=== PATIENT | female | born 1990 | race Caucasian/White ===

== ENCOUNTER 2018-06-08 13:07 | Inpatient (IN) | payer BC, OTHER ==
[~2018-06-08] VITALS: Ht 170.2 cm; Wt 55.8 kg
--- NOTE | 2018-06-08 21:35 | NUR ---
PRE-ADMISSION NOTE Pt was seen in intake office. Pt is intoxicated and is currently not experience any s/s of withdrawal. Pt has difficulty concentrating, mainlining eye contact, and has a disheveled appearance. Pt has a steady gait. V/S: P:93, RR:16, RR:16, SPO2:99, BP:133/92. Pt is acceptable for admittance to the unit. .
[2018-06-08] MEDS ORDERED: LORAZEPAM 2 MG/1 ML VIAL IM PRN (22:00)
[2018-06-08] MEDS ORDERED: MIRALAX 17 GM POWD.PACK PO PRN (22:00)
[2018-06-08] MEDS ORDERED: ONDANSETRON ODT 4 MG TAB.RAPDIS SL PRN (22:00)
[2018-06-08] MEDS ORDERED: diphenhydrAMINE 50 MG CAPSULE PO PRN (22:00)
[2018-06-08] MEDS ORDERED: BUPRENORPHINE HCL 2 MG TAB.SUBL SL PRN (22:00)
[2018-06-08] MEDS ORDERED: MAGNESIUM HYDROXIDE 30 ML LIQUID UDC PO PRN (22:00)
[2018-06-08] MEDS ORDERED: ONDANSETRON 4 MG/2 ML VIAL IM PRN (22:00)
[2018-06-08] MEDS ORDERED: LORAZEPAM 1 MG TABLET PO PRN (22:00)
[2018-06-08] MEDS ORDERED: MAG HYDROX/AL HYDROX/SIMETH 30 ML LIQUID UDC PO PRN (22:00)
[2018-06-08] MEDS ORDERED: ACETAMINOPHEN 325 MG TABLET PO PRN (22:00)
[2018-06-08] MEDS ORDERED: LOPERAMIDE HCL 2 MG CAPSULE PO PRN ×2 (22:00)
[2018-06-08] MEDS ORDERED: HYDROXYZINE PAMOATE 25 MG CAPSULE PO PRN (22:00)
[2018-06-08 22:17] LABS: BASOPHILS % (AUTO) 0.3 % (0.0-2.0); EOSINOPHILS # (AUTO) 0.2 K/uL (0.0-0.7); EOSINOPHILS % (AUTO) 2.6 % (0.0-7.0); HEMATOCRIT 41.9 % (31.2-41.9); HEMOGLOBIN 14.2 g/dL (10.9-14.3); LYMPHOCYTES # (AUTO) 2.8 K/uL (20.0-40.0); LYMPHOCYTES % (AUTO) 43.9 % (20.5-51.5); MEAN CORPUSCULAR HEMOGLOBIN 30.5 uug (24.7-32.8); MEAN CORPUSCULAR HGB CONC 34 g/dL (32.3-35.6); MEAN CORPUSCULAR VOLUME 89.8 fL (75.5-95.3); MONOCYTES # (AUTO) 0.4 K/uL (2.0-10.0); MONOCYTES % (AUTO) 6.8 % (0.0-11.0); NEUTROPHILS % (AUTO) 46.4 % (38.5-71.5); PLATELET COUNT (AUTO) 297 K/uL (179-408); RED BLOOD CELL COUNT(AUTO) 4.67 MIL/uL (3.63-4.92); WHITE BLOOD COUNT (AUTO) 6.4 K/uL (3.8-11.8)
[2018-06-08 22:24] LABS: ETHANOL < 3 MG/DL (0-0)
[2018-06-08 22:28] LABS: ALANINE AMINOTRANSFERASE 48 U/L (14-59); ALKALINE PHOSPHATASE 95 U/L (50-136); AMYLASE 34 U/L (25-115); ASPARTATE AMINOTRANSFERASE 25 U/L (15-37); BILIRUBIN,TOTAL 0.3 mg/dL (0.2-1.0); CARBON DIOXIDE 31 mmol/L (21-32); CHLORIDE 101 mmol/L (98-107); CREATININE 0.9 mg/dL (0.6-1.3); GLUCOSE 84 mg/dL (74-106); LIPASE 65 U/L (73-393); MAGNESIUM 2.3 mg/dL (1.8-2.4); POTASSIUM 4.1 mmol/L (3.5-5.1); TOTAL PROTEIN, SERUM 7.4 g/dL (6.4-8.2); UREA NITROGEN, BLOOD 6 mg/dL (7-18)
[2018-06-08 22:41] LABS: *URINE HCG, QUAL NEGATIVE (NEGATIVE)
[2018-06-08 22:49] LABS: THYROID STIMULATING HORMONE 2.635 mIU/mL (0.358-3.740)
--- NOTE | 2018-06-08 22:49 | NUR ---
ADMISSION NOTE Pt is a 27 y/o female who is being admitted for medically supervised withdrawal from Benzodiazepines and Opiates. Pt is moderately intoxicated and is not currently experiencing any s/s of withdrawal. Pt appears disheveled and unkempt. Pt has flat affect and depressed mood. She is A/O to person, place, time, and purpose. She has avoidant eye contact, racing thoughts, and difficulty concentrating. Pt state that withdrawal from these substances usually includes anxiety, sweats, crawling skin, body aches, chills, and racing thoughts. She also states that she has had withdrawal induced seizures, as well as, delirium. Pt has never had an overdose. Pt states current substance use as follows: 1. Oxycodone: 10mg daily for the past month. Pts last use was on 06/08/18. She first began using when she was 18 y/o. 2. Valium: 15mg daily for the past month. Pts last use was on 06/08/18. She first began using when she was 20y/o. 3. Ativan: 2mg daily for the past week. Pts last use was on 06/08/18. She first began using when she was 18 y/o. 4. Heroin: socially. Pt didnt prepare the dose and doesnt know how much was taken. Pts last use was on 06/01/18, she did two shots. She first began using 2 yrs ago and that was the only other time she used. 5. Vyvanse: 20-30mg daily for the past week. Pts last use was on . She first began using a year and a half ago. Pt states that she is seeking treatment today because this has gone on way too long and has gotten worse and worse. Pt states that its fucked everything up including my dreams of college, my relationship with my mom and sister, and my personal life. I dont want it affecting my son. Pt states that she first started using because she felt her life was overwhelming and falling apart, and I felt like things wouldnt get better, so I might as well remain in this hell. Pt last treatment was 2 years ago at [facility], and she remained sober for 6 months after. However, these feelings crept back into her thoughts and she began using again. Pt states that this time will be different because she wants to focus on recovery. I want to feel better for my son. I brought him into this world and its not fair to him. Pt states they want to go to a sober living after detox, and wants to get involved in a group program like AA. She states, though, she doesnt have any support from her immediately family. V/S: T:98.4, P:94, RR:18, SPO2:100, BP:134/88. Pts respirations are unlabored and even. Lung sounds are clear. Skin is intact. She follows a regular diet at home. Pt has allergies to Phenergin and Tramadol. She smokes 20 cigarettes per day. Pt doesnt recall the name of her PCP. Pt states that she no medical Hx, but has a psychiatric h/o bipolar disorder, borderline personality disorder. ADHD, and PTSD. She states that she was admitted in 2016 for 5150 hold that turned into a two week hold. She states that this was a result of a psychotic break that created paranoid delusions stemming from a onetime shot of methamphetamines. Pt also states that she had a suicide attempt, but doesnt recall the exact of when it was. Pt was educated on the plan of care including medication regime, group and individual therapy, and discharge planning. Pt was also advised on our use of open communication to stem things off before her s/s get out of control. Pt acknowledged and agreed. Call light is within reach. Pt will continue to be monitored and needs met.
[2018-06-08 22:54] LABS: *AMPHETAMINE, URINE POSITIVE (NEGATIVE); *BARBITURATE, URINE NEGATIVE (NEGATIVE); *CANNABINOID, URINE NEGATIVE (NEGATIVE); *COCCAINE, URINE NEGATIVE (NEGATIVE); *OPIATE, URINE POSITIVE (NEGATIVE); *PHENCYCLIDINE SCREEN,URINE NEGATIVE (NEGATIVE)
--- NOTE | 2018-06-09 | NUR ---
CIWA AND COWS ASSESSMENT CIWA 16 and COWS 11. Pt is presenting w/ anxiety, restlessness, tremors, sweats, loose stools, and crawling skin. Will administer PRN Ativan to reduce s/s.
[2018-06-09] MEDS: LORAZEPAM 1 MG TABLET PO PRN ×2 (00:13→12:23)
--- NOTE | 2018-06-09 00:13 | NUR ---
PRN ATIVAN AND BENADRYL ADMINISTRATION Ativan 2mg and Benadryl 50mg given for CIWA 16 and sleep. Will reasses pt in 1 hr.
--- NOTE | 2018-06-09 01:13 | NUR ---
PRN ATIVAN AND BENADRYL REASSESSMENT Pt is in bed w/ her eyes closed. Pt's respirations are unlabored and even.
[2018-06-09] MEDS ORDERED: ACYC400T PO (01:48)
--- NOTE | 2018-06-09 04:00 | NUR ---
CIWA AND COWS DEFERRED. V/S REFUSED Pt is in bed w/ her eyes closed. Pt's respirations are unlabored and even.
--- NOTE | 2018-06-09 07:30 | NUR ---
END OF SHIFT NOTE Endorsed pt to oncoming nurse. Pt is a 27 y/o female A/O to person, place, time, and purpose. Pt was admitted for medically supervised withdrawal from Opiates and Benzodiazepines. Pt was intoxicated upon admission, but began to experience s/s of withdrawal around midnight. Pt presented w/ anxiety, sweats, restlessness, and body aches. PRN Ativan 2mg and Benadryl 50mg given for anxiety and sleep, noted effective. Pts fluid intake was 500ml and she voided 2 times. Pt slept for 5hrs. Last CIWA 16 and COWS 11 @ 0000. Call light is within reach.
--- NOTE | 2018-06-09 07:30 | NUR ---
Start of shift Pt is 27 y/o female admitted for medically supervised withdrawal of benzos and opiates. Report received from shift coordinator nurse. Per shift coordinator nurse last COWS 11 and CIWA 16 at 2400. Upon start of shift pt was in bed with eyes closed. Araousable to voice and light touch. Pt appears disheveled, odorous and flushed. Pts room has wrappers and empty bottles all over tables and dresser. Pts expression is anxious and she has poor eye contact. Pt has withdrawn mood, flat affect, sweats, body aches, restlessness, and fine tremors. During assessment, pt is AOx3. Lung sounds clear bilaterally. Radial pulse is regular and non-bounding. Abdomen soft and non-tender. Pt denies c/o N/V/D. Skin is warm and dry. Pt is currently PRN medications to manage withdrawal symptoms. Bed in lowest position. Side rails up x2. Call light functioning and within reach. All needs attended and met. Will continue to monitor.
[2018-06-09 08:00] VITALS: BP 92/53
--- NOTE | 2018-06-09 08:05 | NUR ---
COWS 11/CIWA 17- PT PRESENTS WITH MODERATE ANXIETY, SWEATS/CHILLS, FINE TREMORS, RESTLESSNESS, GENERALIZED BODY ACHES, AND BACK PAIN. PT DISHEVELED AND ORODOUS. SHE IS ALSO ISOLATIVE, FLAT AFFECT AND DEPRESSED MOOD.
[2018-06-09] MEDS: IBUPROFEN 600 MG TABLET PO PRN (08:55)
[2018-06-09] MEDS: METHOCARBAMOL 750 MG TABLET PO PRN (08:55)
--- NOTE | 2018-06-09 08:59 | NUR ---
PRN MEDICATIONS- IBUPROFEN 600 MG PO FOR BACK PAIN #5/10. ROBAXIN 750 MG PO FOR GENERALIZED BODY ACHES.
[2018-06-09] MEDS ORDERED: TUBERCULIN,PURIF.PROT.DERIV. 5 TU/0.1 ML TEST ID ONE (09:00)
--- NOTE | 2018-06-09 10:00 | NUR ---
REASSESS PRN MEDICATIONS- PT STATES BACK PAIN NOW #1-2, IBUPROFEN EFFECTIVE. PT REPORTS BODY ACHES IMPROVED. ROBAXIN EFFECTIVE.
[2018-06-09 12:00] VITALS: BP 151/105
[2018-06-09] MEDS: DICYCLOMINE HCL 20 MG TABLET PO PRN ×2 (12:23→22:52)
--- NOTE | 2018-06-09 12:27 | NUR ---
COWS 12/CIWA 17- PT PRESENT WITH STOMACH CRAMPS, SWEATS, CHILLS, MODERATE ANXIETY, STUFFY NOSE, HEAD FULLNESS, GENERALIZED BODY ACHES AND FINE TREMORS. ADMINISTERED PRN SUBUTEX 4 MG SL, ATIVAN 2 MG PO, AND BENTYL 20 MG PO PRESCRIBED. Addendum: 06/09/18 at 1250 by Sonia Lo RN SUBUTEX 4 MG FOR COWS 12 OR GREATER ATIVAN 2 MG PO FOR CIWA >16 BENTYL 20 MG FOR STOMACH CRAMPS Addendum: 06/09/18 at 1259 by Sonia Lo RN BLOOD PRESSURE ELEVATED 115/105, HR 80. MD SARGENT.
[2018-06-09] MEDS ORDERED: 3 DAY TAPER BUPRENORPHINE -SERENITY PROTOCOL SL PRN (12:45)
[2018-06-09] MEDS ORDERED: 3 DAY TAPER OF VALIUM-SERENITY PROTOCOL PO PRN (12:45)
[2018-06-09 13:30] VITALS: BP 105/65
--- NOTE | 2018-06-09 13:30 | NUR ---
REASSESS COWS 14. PRN SUBUTEX AND ATIVAN EFFECTIVE. PT REPORTS ANXIETY REDUCED AND SWEATS IMPROVING, ONLY HAS CHILLS, MINIMAL BODY ACHES, FINE TREMORS AND DECREASED STUFFY NOES. BENTYL EFFECTIVE, PT REPORTS STOMACH CRAMPS RESOLVED, AND SHE IS ABLE TO EAT LUNCH.
[2018-06-09] MEDS ORDERED: ACYCLOVIR 5% OINT 15 GM TUBE TP SCH (14:00)
[2018-06-09] MEDS: DIAZEPAM 10 MG TABLET PO SCH ×2 (14:36→20:47)
[2018-06-09] MEDS: VALACYCLOVIR HCL 500 MG TABLET PO SCH ×2 (15:33→20:47)
--- NOTE | 2018-06-09 15:34 | NUR ---
Late medication administration- Valacyclovir per Pt request.
[2018-06-09 16:00] VITALS: BP 107/75
--- NOTE | 2018-06-09 16:20 | NUR ---
COWS /CIWA 14- PT REPORTS ANXIETY, SWEATS, CHILLS, BODY ACHES, RESTLESSNESS, FINE TREMORS AND STUFFY NOSE. VSS, PT HAS FLAT AFFECT AND DEPRESSED MOOD. SHE DID PARTICIPATE IN GROUP THERAPY THIS AFTERNOON.
--- NOTE | 2018-06-09 18:34 | NUR ---
End of shift Pt is 27 y/o female admitted for medically supervised withdrawal of benzos and opiates. Today Pt was started on 3 day modified Subutex and 3 day modified Valium taper. Last COWS 10 and CIWA 14 at 1600. Pt remains disheveled, odorous and flushed. She did not shower today. Pts room has wrappers and empty bottles all over tables and dresser. Pts expression is anxious and she has poor eye contact. Pt has withdrawn mood, flat affect, sweats, body aches, stomach cramps, restlessness, and fine tremors. PRN medications given to manage withdrawal symptoms were; Robaxin, Motrin, Subutex, Bentyl and Ativan. Pt appetite is fair to poor. Pt encouraged to participate in group activities, socialize with others and identify positive coping skills to maintain sobriety. Pt attended one group session today. PO fluids 1400 ml, voids x3, no BM. FULL CODE AND ALLERGY TO PHENERGAN AND TRAMADOL. Bed in lowest position. Side rails up x2. Call light functioning and within reach. All needs attended and met. Will continue to monitor. Endorsed to PM shift.
--- NOTE | 2018-06-09 19:26 | NUR ---
START OF SHIFT Patient is a 27-year-old female admitted on 06/08/18 for benzodiazepine and opiate withdrawal. Patient is currently on a 3-day Subutex and 3-day Valium taper, tolerating well; today is the first day of both tapers. Patient's last COWS was 10, last CIWA 14, per endorsement. Patient received the following PRN medications today: Robaxin, Motrin, Bentyl, Ativan, and Subutex; noted to be effective. Upon assessment, patient is alert and oriented x4, appears disheveled and tired. Patient complains of feeling "bloated" despite having a small BM last night. She states, "I'll keep trying the prune juice and I'll let you know." Patient reports feeling anxious and states that she has difficulty sleeping at night. Patient is also concerned about possible STI's she may have recently contracted and is requesting to be tested. Patient is on fall and seizure precautions, with her most recent seizure activity about 2 years ago. Safety measures in place, side rails up x2, bed locked in low position, call light is within reach. Will continue to monitor.
[2018-06-09 20:00] VITALS: BP 107/75
--- NOTE | 2018-06-09 20:00 | NUR ---
COWS 9, CIWA 16 Patient has a COWS score of 9, and a CIWA score of 16. Patient reports feeling anxious, restless, worried, and reports diaphoresis, stomach cramps, chills, and some tingling in her extremities. SN to administer meds as ordered. Will continue to monitor.
[2018-06-09] MEDS ORDERED: BUPRENORPHINE HCL 2 MG TAB.SUBL SL SCH (21:00)
[2018-06-09] MEDS: QUETIAPINE FUMARATE 100 MG TABLET PO PRN (22:53)
--- NOTE | 2018-06-09 22:53 | NUR ---
PRN SEROQUEL & BENTYL Patient reports difficulty sleeping and is requesting sleep medication as well as medication for stomach cramps. PRN Seroquel 100mg given PO and PRN Bentyl 20mg given PO. Safety measures in place, side rails up x2, bed locked in low position, call light within reach. Will monitor for effectiveness.
--- NOTE | 2018-06-09 23:53 | NUR ---
PRN SEROQUEL & BENTYL REASSESSMENT Patient is observed sleeping in bed with eyes closed, respirations even and unlabored. PRN Seroquel noted to be effective at this time. Unable to assess PRN Bentyl at this time. Safety measures in place, side rails up x2, bed locked in low position, call light within reach. Will continue to monitor.
[2018-06-10] VITALS: BP 88/50
--- NOTE | 2018-06-10 | NUR ---
COWS & CIWA DEFERRED COWS and CIWA deferred at this time due to patient sleeping; to be assessed and scored while patient is awake. Patient's respirations are even and unlabored. Safety measures in place, side rails up x2, bed locked in low position, HOB elevated 30 degrees, call light within reach. Will continue to monitor.
--- NOTE | 2018-06-10 01:15 | NUR ---
COWS 8, CIWA 12 Patient is awake, asking for snacks from the kitchen. SN provided the snacks patient requested and encouraged fluids. Current COWS 8, CIWA 12. Patient reports anxiety and diaphoresis, patient is restless and still has tingling in her extremities. Safety measures in place, side rails up x2, bed locked in low position, call light within reach. Will continue to monitor.
[2018-06-10 04:00] VITALS: BP 94/56
--- NOTE | 2018-06-10 04:00 | NUR ---
COWS & CIWA DEFERRED COWS and CIWA deferred at this time due to patient sleeping, to be assessed and scored while patient is awake. Respirations even and unlabored. Safety measures in place, side rails up x2, bed locked in low position, call light within reach. Will continue to monitor.
--- NOTE | 2018-06-10 07:20 | NUR ---
END OF SHIFT Patient is a 27-year-old female admitted on 06/08/18 for benzodiazepine and opiate withdrawal. Patient is currently on a 3-day Subutex and 3-day Valium taper, tolerating well; today will be day 2 of both tapers. Patient's last COWS was 8, last CIWA was 12. Patient received PRN Seroquel and PRN Bentyl; both were effective. Patient slept for 7 hours, total intake of 1,490mL, void x4, stool x1. Patient is concerned about possible STI's she may have recently contracted and is requesting to be tested. Patient is on fall and seizure precautions, with her most recent seizure activity about 2 years ago. Safety measures in place, side rails up x2, bed locked in low position, call light is within reach. Will endorse to day shift.
--- NOTE | 2018-06-10 07:30 | NUR ---
Start of shift note; Received report from night nurse. Patient is a 27 year old female admitted on 06/08/18 for Opiate/ Benzodiazepine withdrawal. Patient was placed on a 3 day Subutex and 3 day Valium taper to help reduce withdrawal symptoms. Patient received PRN Seroquel and PRN Bentyl last night both noted to be effective per endorsement. Patient is currently resting with eyes close, respirations of 18 noted. Patient's last COWS score is 8 and last CIWA score is 12 per endorsement. All safety measures secured. Will re-asses when patient is awake. Will closely monitor patient.
[2018-06-10 08:00] VITALS: BP 98/64
--- NOTE | 2018-06-10 08:00 | NUR ---
COWS and CIWA Assessment; Patient is AOX4, patient appears disheveled, patient's room is cluttered. Patient current COWS score is 14 and CIWA score of 14 manifested by stomach cramps, muscle aches, vivid dreams, patient appears anxious and agitated, yawning noted, tingling sensation, intermittent sweats. Patient is avoidant to eye contact but remained cooperative. Patient was placed on 3 day Subutex and 3 day Valium taper to help reduce withdrawal symptoms. Will continue to monitor patient.
[2018-06-10] MEDS: DIAZEPAM 5 MG TABLET PO SCH ×3 (09:30→20:13)
[2018-06-10] MEDS: VALACYCLOVIR HCL 500 MG TABLET PO SCH ×2 (09:30→20:13)
[2018-06-10] MEDS: BUPRENORPHINE HCL 2 MG TAB.SUBL SL SCH ×3 (09:30→20:13)
--- NOTE | 2018-06-10 10:52 | NUR ---
Report note; Patient is AOX4, currently in her room resting. Detailed report given to covering nurse. Met all needs.
--- NOTE | 2018-06-10 11:00 | NUR ---
Endorsement Received Report given from nurse going off duty, continuity of care will be maintained.
[2018-06-10 11:06] LABS: HEPATITIS B SURFACE AG Negative (Negative)
[2018-06-10 12:00] VITALS: BP 94/54
--- NOTE | 2018-06-10 12:00 | NUR ---
COWS 13 CIWA 14 Withdrawal symptoms include pins and needles in hands and feet, lethargy, decreased appetite, yawning, aching joints and stuffy nose. No PRN medications requested or required though offered.
[2018-06-10 16:00] VITALS: BP 78/41
--- NOTE | 2018-06-10 16:00 | NUR ---
COWS 12 CIWA 14 Withdrawal symptoms include pins and needles in hands and feet, extreme lethargy, decreased appetite, yawning, aching joints, teary eyes and runny nose. No PRN medications requested or required though offered
--- NOTE | 2018-06-10 18:46 | NUR ---
End Of Shift : 317 Patient is a 27 yr old female who was admitted to [facility] on 06/08/18 for a medically supervised withdrawal from Benzodiazepines ( Valium, Ativan ) and Opiates ( Oxycodone, Heroin). She has been placed on 3 day Subutex and 3 day Valium taper and this is day 2. No PRN medications were required or requested this shift. Her withdrawal symptoms present as tingling and pins and needles in her feet and hand, muscle aches, cramps, increased anxiety, yawning, lethargy and depressed flat affect. She had a fluid intake of 1800 ML, 3 Voids and 0BM, Last COWS 12 and CIWA 14 @ 1600. She took a shower this AM . Continue to follow MD plan of care and offer support as needed. Endorsed to electrical maintenance mechanic.
--- NOTE | 2018-06-10 19:53 | NUR ---
START OF SHIFT NOTE Rcvd report from outgoing nurse. Pt is a 27 y/o female A/O to person, palce, time, and purpose. Pt was admitted for medically supervised withdrawal from Opiates and Benzodiazepines. Pt has been presenting w/ lethargy, anxiety, depressed mood, irritability, and body aches. Pt has spent the entire day sleeping in her room. Pt denies S/I and H/I. Pt rcvd no PRN medications during previous shift. Last CIWA 14 and COWS 12 @ 1600. Call light is within reach. Pt will continue to be monitored and needs met.
--- NOTE | 2018-06-10 20:00 | NUR ---
CIWA AND COWS ASSESSMENT CIWA 13 and COWS 13. Pt presents w/ lethargy, constipation, depressed mood, flat affect, irritability, anxiety, and body aches. V/S: T:98.9, P:94, RR:15, SPO2:98, BP:90/56.
[2018-06-10 20:01] VITALS: BP 90/56
[2018-06-11 00:02] VITALS: BP 117/74
--- NOTE | 2018-06-11 00:03 | NUR ---
CIWA AND COWS ASSESSMENT CIWA 11 and COWS 12. Pt presenting w/ anxiety, restlessness, body aches, sweats, tremors, and lethargy. V/S:T:98.8, P:91, RR:16, SPO2:100, BP:117/74
[2018-06-11] MEDS: METHOCARBAMOL 750 MG TABLET PO PRN ×2 (00:38→09:53)
[2018-06-11] MEDS: QUETIAPINE FUMARATE 25 MG TABLET PO PRN ×2 (00:38→21:09)
--- NOTE | 2018-06-11 00:38 | NUR ---
PRN ROBAXIN AND SEROQUEL Seroquel 25mg and Robaxin 750mg given for anxiety, agitation, and body aches. Will reassess pt in 1 hr.
--- NOTE | 2018-06-11 01:38 | NUR ---
PRN ROBAXIN AND SEROQUEL REASSESSMENT Pt is in bed w/ her eyes closed. Pt's respirations are unlabored and even.
--- NOTE | 2018-06-11 04:02 | NUR ---
CIWA AND COWS DEFERRED Pt is in bed w/ her eyes closed. Pt's respirations are unlabored and even.
--- NOTE | 2018-06-11 07:09 | NUR ---
END OF SHIFT NOTE Endorsed pt to oncoming nurse. Pt is a 27 y/o female A/O to person, palce, time, and purpose. Pt was admitted for medically supervised withdrawal from Opiates and Benzodiazepines. Pt continues to present w/ lethargy, anxiety, depressed mood, irritability, and body aches. Pt has spent the entire shift sleeping in her room. PRN Seroquel and Robaxin given for anxiety, agitation, and body aches/pain, noted effective. Pts fluid intake was 1050ml, she had 1 BM, and voided 2 times. Pt slept for 5 hrs. Last CIWA 11 and COWS 12 @ 0000. Call light is within reach.
--- NOTE | 2018-06-11 07:20 | NUR ---
Start of shift note: Patient is a 27 year old female admitted on 06/08/18 for Opiate/ Benzodiazepine withdrawal. Patient was placed on a 3 day Subutex and 3 day Valium taper and this is day 3 . Patient received PRN Seroquel and PRN Robaxin last night both noted to be effective per endorsement. Patient is currently sleeping, respirations even and unlabored. Patient's last COWS score is 12 and last CIWA score is 11 per endorsement. Continue to follow MD plan of care and offer support as needed.
[2018-06-11 08:00] VITALS: BP 96/61
[2018-06-11] MEDS ORDERED: BUPRENORPHINE HCL 2 MG TAB.SUBL SL SCH (09:00)
[2018-06-11] MEDS: VALACYCLOVIR HCL 500 MG TABLET PO SCH ×2 (09:44→21:09)
[2018-06-11] MEDS: DIAZEPAM 5 MG TABLET PO SCH ×2 (09:44→21:09)
[2018-06-11] MEDS: DICYCLOMINE HCL 20 MG TABLET PO PRN (09:53)
[2018-06-11] MEDS: IBUPROFEN 600 MG TABLET PO PRN (09:53)
--- NOTE | 2018-06-11 10:00 | NUR ---
PRN Medications Motrin 600 MG PO and Tylenol 650 MG PO given for complaints of headache 04/08 Bentyl 20 MG PO given for complaints of sharp stabbing stomach pain Robaxin 750 MG PO given for complaints of generalized body aches. Will reassess
--- NOTE | 2018-06-11 10:00 | NUR ---
COWS 12 CIWA 14 Withdrawal symptoms include moderate headache, stomach pain, generalized body aches, fatigue, restlessness, stuffy nose and sensitivity to light. PRN Medications given : Motrin 600mg, Tylenol 650mg, Robaxin 750mg and Bentyl 20mg PO
--- NOTE | 2018-06-11 11:00 | NUR ---
PRN Reassess patient states that Motrin 600mg PO and Tylenol 650mg PO were effective in reducing headache pain, pain level now 2/10 Robaxin effective for body aches and Bentyl was effective for stomach pain, will continue to monitor.
[2018-06-11 12:00] VITALS: BP 117/65
--- NOTE | 2018-06-11 12:00 | NUR ---
COWS 12 CIWA 16 Withdrawal symptoms include headache, stomach pain, generalized body aches, fatigue, restlessness, stuffy nose and sensitivity to light and increased anxiety. PRN Medications given : Motrin 600mg, Tylenol 650mg, Robaxin 750mg and Bentyl 20mg PO, all effective for symptoms.
--- NOTE | 2018-06-11 13:32 | NUR ---
Therapist prompted client to attend twice daily group therapy sessions.
[2018-06-11 16:00] VITALS: BP 78/41
--- NOTE | 2018-06-11 16:16 | NUR ---
COWS 11 CIWA 14 Withdrawal symptoms include headache,stabbing stomach pain, generalized body aches, fatigue, emotional volatility restlessness, stuffy nose and sensitivity to light and increased anxiety and irritability. PRN Medications given today: Motrin 600mg, Tylenol 650mg, Robaxin 750mg and Bentyl 20mg PO, all effective for symptoms.
--- NOTE | 2018-06-11 18:40 | NUR ---
End Of Shift : Patient is a 27 yr old female who was admitted to [facility] on 06/08/18 for a medically supervised withdrawal from Benzodiazepines ( Valium, Ativan ) and Opiates ( Oxycodone, Heroin). She has been placed on 3 day Subutex and 3 day Valium taper and this is day 3. PRN medications given on this shift: Motrin, Tylenol, Robaxin and Bentyl .Her withdrawal symptoms present as 1+ Non pitting edema in bilateral feet , muscle aches, cramps, stomach pain, emotionally volatile, increased anxiety, yawning, lethargy and depressed flat affect. She had a fluid intake of 1375 ML, 4 Voids and 0BM, Last COWS 11 and CIWA 14 @ 1600 . She did not attend any groups today despite encouragement, she mostly stayed isolated in her room sleeping. Continue to follow MD plan of care and offer support as needed. Endorsed to shift leader.
--- NOTE | 2018-06-11 19:30 | NUR ---
START OF SHIFT Pt is a 27 y/o female admitted on 06/08/18 for opiate and benzo withdrawal. Pt on last day of a 3 day valium taper and 3 day Subutex taper, tolerating well. Last COWS 11 CIWA 14 and PRN Bentyl, Motrin, Robaxin, and Tylenol were administered during day shift. Upon rounds Pt presents with anxiety, agitation, restlessness, depression, flat affect, flushed and clammy skin, chills, difficulty falling and staying asleep, headache, stomach cramps, and generalized body aches. Medications due, Safety measures in place. Call light within reach. Will continue to monitor.
[2018-06-11 20:00] VITALS: BP 93/56
--- NOTE | 2018-06-11 20:00 | NUR ---
COWS 12 CIWA 12 Pt presents with tremors, chills, restlessness, fidgety, generalized body aches, stuffy nose, stomach cramps, anxiety, and is irritable. Safety measures in place. Call light within reach. Will continue to monitor.
--- NOTE | 2018-06-11 21:09 | NUR ---
PRN SEROQUEL 25MG ADMINISTRATION Pt is having difficulty falling and staying asleep. Pt requested a sleeping aid. PRN Seroquel 25mg was administered. Safety measures in place. Call light within reach. Will continue to monitor.
--- NOTE | 2018-06-11 22:09 | NUR ---
PRN SEROQUEL REASSESSMENT Pt was found in bed with eyes closed. Respirations are even and unlabored. Medication noted effective. Safety measures in place. Call light within reach. Will continue to monitor.
--- NOTE | 2018-06-12 | NUR ---
VITAL SIGNS REFUSED COWS/CIWA DEFERRED Pt found in bed with eyes closed. Respirations even and unlabored. No signs of acute distress noted. Pt refused v/s and COWS/CIWA assessment unable to be carried out per order. Safety measures in place. Call light within reach. Will continue to monitor.
[2018-06-12] MEDS: QUETIAPINE FUMARATE 25 MG TABLET PO PRN (02:09)
[2018-06-12] MEDS: METHOCARBAMOL 750 MG TABLET PO PRN (02:09)
--- NOTE | 2018-06-12 02:09 | NUR ---
PRN SEROQUEL 25MG AND ROBAXIN 750MG ADMINISTRATION Pt awoke from a nightmare and was agitated. Pt stated, "Someone walked into my room, tucked me into bed and told me a spanish prayer." Pt's door was closed at the time of the nightmare. Pt requested a muscle relaxant for generalized body pain 6/10 and something for her agitation. Medications were administered. Safety measures in place. Call light within reach. Will continue to monitor.
--- NOTE | 2018-06-12 03:09 | NUR ---
PRN SEROQUEL AND ROBAXIN REASSESSMENT Pt is found in bed with eyes closed. Pt's respirations are even and unlabored. No signs of acute distress noted on assessment. Safety measures in place. Call light within reach. Will continue to monitor.
[2018-06-12 04:00] VITALS: BP 90/45
--- NOTE | 2018-06-12 04:00 | NUR ---
COWS 9 CIWA 6 Pt presents with anxiety, agitation, tremors, generalized body aches, flushes and clammy skin. Safety measures in place. Call light within reach. Will continue to monitor.
--- NOTE | 2018-06-12 07:13 | NUR ---
END OF SHIFT Pt is a 27 y/o female admitted on 06/08/18 for opiate and benzo withdrawal. Pt completed a 3 day Valium taper and 3 day Subutex taper, tolerated well. Pt presented with anxiety, agitation, restlessness, depression, flat affect, flushed and clammy skin, chills, difficulty falling and staying asleep, headache, stomach cramps, and generalized body aches. Scheduled medications and PRN Robaxin and Seroquel administered, effective with S/S of withdrawal AEB Pt sleeping for 7 hours. Intake 975 ml, void x 1, stool x 0. Safety measures in place. Call light within reach. Pt's needs have been met.
--- NOTE | 2018-06-12 07:30 | NUR ---
Start of Shift Sash Repairer received report on 27 year old female admitted to [facility] on 06/08/18 for medical management of Benzodiazepine and Opiate withdrawals. Pt endorses allergies to Phenergan and Tramadol. Endorses full code and regular diet. PMH of Hepatitis C and Herpes, with active sore. Pt with history of seizures with last known 2 years ago. Pt has completed a Subutex and Valium taper with last CIWA 6 and COWS 9, per NOC report. No PRN medications administered per NOC report. Sash Repairer encounters pt in pts room with pt resting with eyes closed, even and unlabored respirations noted. Bed in low position with wheels locked and side rails up. Will continue to monitor, support and encourage according to plan of care.
--- NOTE | 2018-06-12 08:00 | NUR ---
CIWA 6/COWS 6 Pt with complaints of severe stomach discomfort. Pt has fine tremors and is restless and anxious. Will continue to monitor, support and encourage according to plan of care.
[2018-06-12 08:44] VITALS: BP 86/52
[2018-06-12] MEDS: IBUPROFEN 600 MG TABLET PO PRN (09:01)
[2018-06-12] MEDS: DICYCLOMINE HCL 20 MG TABLET PO PRN (09:01)
[2018-06-12] MEDS: VALACYCLOVIR HCL 500 MG TABLET PO SCH (09:01)
--- NOTE | 2018-06-12 09:01 | NUR ---
ILDA Barahona and Hu Pt raets her pain as 8/10, stating her stomach his " killing me." Pt insists this is not withdrawal related, "this has been going on longer," Chopped Strand Operator administered medication per MD orders with pt tolerating well. Will continue to monitor, support and encourage according to plan of care.
[2018-06-12 09:07] LABS: *TRIC.VAG. NAA Negative (Negative)
--- NOTE | 2018-06-12 10:01 | NUR ---
PRN Re-Assessment Pt rates pain 5/10 and feels improved. Will continue to monitor, support and encourage according to plan of care.
--- NOTE | 2018-06-12 12:00 | NUR ---
CIWA 7/COWS 8 Pt with complaints of stomach pain, chills, and nausea. Pt is anxious, restless and has fine tremors. Pt is irritable and labile. Will continue to monitor, support and encourage according to plan of care.
[2018-06-12 12:08] LABS: *GC NAA Negative (Negative)
[2018-06-12 12:40] VITALS: BP 99/50
--- NOTE | 2018-06-12 13:00 | NUR ---
TRANSFER OF CARE Endorsement and pertinent info received from ongoing nurse. Pt has completed a subutex and valium taper and tolerated well. Last cows 7 and ciwa 8 @1200. Safety measures in place. Will continue to monitor.
[2018-06-12] MEDS ORDERED: DICY20TA28 PO (15:08)
[2018-06-12] MEDS ORDERED: METH-406 PO (15:08)
[2018-06-12] MEDS ORDERED: IBUP-1955 PO (15:08)
[2018-06-12] MEDS ORDERED: QUET25TA PO (15:08)
[2018-06-12] MEDS ORDERED: QUET100T PO (15:08)
[2018-06-12] MEDS ORDERED: HYDR-3895 PO (15:08)
--- NOTE | 2018-06-12 15:41 | NUR ---
PRN Vistaril 25 mg po prn given for increased anxiety; pt states he woke up feeling increased anxiety, sweating, and generalized feeling of being unwell. Will monitor and reassess.
[2018-06-12] MEDS ORDERED: CLONIDINE HCL 0.1 MG TABLET PO PRN (15:45)
--- NOTE | 2018-06-12 16:00 | NUR ---
COWS 9 and CIWA 9 Pt is sitting up in bed just had awaken prior; pt is highly irritable, fidgety, anxious and agitated. Pt verbalized she has an increased in sweating, chills, anxiety, agitation, and restlessness. Vistaril prn was given. Encouraged pt to use non-pharmalogical methods including deep breathing exercises. Will continue to monitor.
[2018-06-12 16:30] VITALS: BP 86/50
--- NOTE | 2018-06-12 16:41 | NUR ---
REASSESSMENT Pt is laying in bed with eyes closed sleeping. Respirations even and unlabored. Safety measures in place. Will continue to monitor.
--- NOTE | 2018-06-12 18:48 | NUR ---
END OF SHIFT Pt has been isolative in room throughout the day; has not attended any groups. Pt has a blunt affect, highly irritable, agitated, anxious, restless, c/o increased sweating, hot/cold flashes and stomach cramps. Pt has been given bentyl, ibuprofen, and vistaril prn during shift. Last COWS 7 and CIWA 8 @1600. Pt ate 50/75/75% of meals. Safety measures in place.
--- NOTE | 2018-06-12 19:30 | NUR ---
Start of shift note Received report from day shift Nurse. Patient is a 27 year old female admitted for Opiate and Benzo withdrawal. Patient completed Subutex and Valium taper. Patient is medically cleared to bed discharge tomorrow. Patient was given PRN Vistaril, Bentyl and Motrin. Patient has Genital Herpes and completed her Valtrex. Patient is alert and oriented x 4. Respiration even and unlabored. Patient presents with flat affect, blunt, anxious, restless, irritable and agitated. Safety measures in place. Call light in reach. Will continue to monitor
[2018-06-12 20:00] VITALS: BP 104/71
--- NOTE | 2018-06-12 20:00 | NUR ---
COWS and CIWA assessment Patient presents with flat affect, blunt, anxious, restless, sweating , yawning, irritable and agitated. COWS 8 and CIWA 8.
[2018-06-12] MEDS: QUETIAPINE FUMARATE 100 MG TABLET PO PRN (21:04)
--- NOTE | 2018-06-12 21:04 | NUR ---
PRN Seroquel administration Patient requests for sleep aid. Will monitor for effectiveness
--- NOTE | 2018-06-12 22:30 | NUR ---
PRN Seroquel re-assessment Patient lying in be with eyes closed. Respiration even and unlabored. Will continue to monitor.
--- NOTE | 2018-06-13 | NUR ---
COWS and CIWA deferred Patient lying in bed with eyes closed. Respiration even and unlabored. VS refused. Will continue to monitor.
[2018-06-13 04:00] VITALS: BP 115/70
--- NOTE | 2018-06-13 04:00 | NUR ---
COWS and CIWA deferred Patient lying in bed with eyes closed. Respiration even and unlabored. Will continue to monitor.
--- NOTE | 2018-06-13 07:03 | NUR ---
End of shift note Patient slept 7 hours. Fluid intake 1,296 ml. Voided x 2. BM x 12. Patient completed Subutex and Valium taper. Patient is medically cleared to be discharge today. Patient presented with flat affect, blunt, anxious, restless, sweating , yawning, irritable and agitated. Patient was given PRN Seroquel, effective. Positive encouragement given. Safety measures in place. Call light in reach. Will continue to monitor. Last COWS 8 and CIWA 7.
--- NOTE | 2018-06-13 07:30 | NUR ---
START OF SHIFT Pt is a 27 yr old female, AA&Ox4. Pt was admitted on 06/08/18 for Opioate/Benzo withdrawal and has completed at 3 day Subutex and 3 day Valium taper as ordered. Received report from night supervisor nurse. Pt was given Seroquel PRN during the night. Pt slept for 7 hrs and Last COWS score was 8 and CIWA score was 7. Pt is currently laying in bed, resting with respirations even and unlabored. Pt states of having abdominal pain 7/10. Pt is note with flat affect. Skin is intact, warm and moist to touch. Pt was encouraged increase fluid intake for hydration. Pt is to be discharged today, location is pending. Safety precautions observed. Call light is within reach. Will continue to monitor.
[2018-06-13 08:02] VITALS: BP 107/65
--- NOTE | 2018-06-13 08:29 | NUR ---
NSG NOTE Pt was c/o abdominal cramping 05/08. Pt was offered Bentyl 20mg PO PRN and Motrin 600mg PO PRN, but pt refused to take. Pt is avoidant and covered herself with the blankets. Unable to assess COWS score and CIWA score at this time due to pt wants to continue to sleep. Will continue to f/u
[2018-06-13 12:00] VITALS: BP 113/73
--- NOTE | 2018-06-13 12:00 | NUR ---
COWS score 7, CIWA score 7 Pt is noted with anxiety with agitation m/b difficulty staying still and restless. Skin is moist to touch. CIWA score was 7 and COWS score was 7. Will continue to monitor
[2018-06-13] MEDS: IBUPROFEN 600 MG TABLET PO PRN (12:43)
--- NOTE | 2018-06-13 12:43 | NUR ---
PRN GIVEN Pt c/o lower back pain 06/08. Facial grimacing and irritability was noted. Motrin 600mg PO PRN and Robaxin 750mg PO PRN was given as ordered. Encouraged increase fluid intake for hydration. Will continue to monitor.
[2018-06-13] MEDS: METHOCARBAMOL 750 MG TABLET PO PRN (12:46)
--- NOTE | 2018-06-13 13:36 | NUR ---
DISCHARGE NOTE Pt is a 27 yr old female, AA&Ox4. Pt was admitted on 06/08/18 for Benzo/Opiate withdrawal and has completed a 3 day Valium and 3 day Subutex taper as ordered. Medication was lorenza well. Pt was cooperative with medication regimen and plan of care. Pt is c/o anxiety and lower back pain. Motrin PRN and Robaxin PRN was given for pain mgt and effective. No SI/HI noted. Pt was educated on discharge summary and prescriptions. Pt was able to verbalize understanding. Pt was discharged off the unit at 1335 in stable condition to [facility]. Pt left with all belongings, valuables and home medications.
== END 2018-06-13 13:35 | disposition other institution (70) | DRG 895 ==
LOC: SRC 20:14
PROVIDERS: ADMIT Family Medicine Addiction Medicine; ATTEND Family Medicine Addiction Medicine
PROC: HZ2ZZZZ Detoxification Services for Substance Abuse Treatment (ICD-10-PCS; principal; 2018-06-08)
PROC: HZ41ZZZ Group Counseling for Substance Abuse Treatment, Behavioral (ICD-10-PCS; 2018-06-09)
PROC: HZ31ZZZ Individual Counseling for Substance Abuse Treatment, Behavioral (ICD-10-PCS; 2018-06-11)
DX: F11.23 Opioid dependence with withdrawal (principal); F15.20 Other stimulant dependence, uncomplicated; F13.230 Sedative, hypnotic or anxiolytic dependence with withdrawal, uncomplicated; Z81.1 Family history of alcohol abuse and dependence; Z82.3 Family history of stroke; F17.210 Nicotine dependence, cigarettes, uncomplicated; Z79.899 Other long term (current) drug therapy; F90.9 Attention-deficit hyperactivity disorder, unspecified type; F31.9 Bipolar disorder, unspecified; F43.10 Post-traumatic stress disorder, unspecified
CPT/HCPCS: 36415; 70030-TC; 80307; 80324; 80346; 80361; 83690; 83735; 84443; 84703; 85025; 86580; 86592; 86705; 86803; 87340; 87491; 87806; A4663; G0480; Q0163